=== PATIENT | male | born 1995 | race Two or more races ===

== ENCOUNTER 2022-11-08 11:01 | Emergency (ER) | payer BC, OTHER ==
[~2022-11-08] VITALS: Ht 175.3 cm; Wt 78.4 kg
[~2022-11-08 11:01] MED LIST: AMOXICILLIN
[2022-11-08] MEDS ORDERED: HYDROcodone-ACET 5/325MG TAB PO ONE (11:30)
[2022-11-08 11:46] LABS: Basophils # (auto) 0 10 ^3/uL (0-0.2); Basophils % (auto) 0.8 % (0.0-2.0); Eosinophils # (auto) 0.1 10 ^3/uL (0-0.8); Eosinophils % (auto) 2.1 % (0.0-7.0); Hemoglobin 15.4 g/dL (13.5-17.5); Lymphocytes # (auto) 1.3 10 ^3/uL (0.4-5.4); Lymphocytes % (auto) 29.8 % (10.0-50.0); Mean Corpuscular Hemoglobin 31.5 pg (28.0-32.0); Mean Corpuscular Hgb Conc. 34.2 g/dL (32.0-36.0); Monocytes # (auto) 0.4 10 ^3/uL (0-1.3); Monocytes % (auto) 9.4 % (0.0-12.0); Neutrophils # (auto) 2.5 10 ^3/uL (1.6-8.6); Neutrophils % (auto) 57.9 % (37.0-80.0); Nucleated Red Blood Cells % 0.3 %; Red Blood Cells 4.89 10^6/uL (4.5-5.90); Red Cell Distribution Width 13.8 % (11.8-14.3); White Blood Cell 4.3 10^3/uL (4.4-10.8)
[2022-11-08 12:32] LABS: Albumin 3.9 g/dL (3.4-5.0); Calcium 8.9 mg/dL (8.5-10.1)
[2022-11-08 12:35] LABS: BUN/Creatinine Ratio 11.9; Bilirubin, Total 0.3 mg/dL (0.2-1.0); CRP High Sensitivity 0.35 mg/dL (< 0.3); Total Protein 7.5 g/dL (6.4-8.2)
[2022-11-08 12:51] LABS: INR 0.99 (0.9-1.15); Partial Thromboplastin Time 31.6 sec (24.6-33.4)
[2022-11-08] MEDS ORDERED: IOHEXOL 300 MG/ML 100ML BOTTLE IJ ONE (12:52)
[2022-11-08] MEDS ORDERED: metroNIDAZOLE 500MG/100ML 100 ML IV ONE (14:30)
[2022-11-08] MEDS ORDERED: cefTRIAXone 1GM/50ML D5W 50 ML IV ONE (14:30)
[2022-11-08 19:09] VITALS: BP 118/69
== END 2022-11-08 13:41 | disposition left against medical advice (07) ==
LOC: ER 11:01
DX: K37 Unspecified appendicitis (principal); Z88.1 Allergy status to other antibiotic agents; Z20.822 Contact with and (suspected) exposure to COVID-19
CPT/HCPCS: 36415; 71045; 74177; 80053; 85025; 85610; 85730; 86141; 86850; 86900; 86901; 87426; 96365; 96366; 96368; 99285; J0696; J3490; Q9967